=== PATIENT | male | born 1985 | race Caucasian/White ===

== ENCOUNTER 2021-04-29 13:29 | Outpatient (CLI) | payer OTHER, SELFPAY ==
--- NOTE | 2021-04-29 13:38 | MR_ITS ---
WS: [id number] MRI LUMBAR SPINE NONCONTRAST HISTORY: LOW BACK PAIN COMPARISON: 02/02/2018 TECHNIQUE: Sagittal and axial multisequence imaging is submitted. 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 This probably due to iraida ging parameters. No progression of this syrinx. Normal lumbar alignment with no compression fractures or marrow edema. Disc spaces and vertebral body heights are well-preserved. Conus terminates normally at L1. L1-L2: Normal. L2-L3: Normal. L3-L4: Normal. L4-L5: Very mild ligamentum flavum hypertrophy and facet arthritis. There is very mild narrowing of t he LEFT foramen. L5-S1: Mild ligamentum flavum and facet arthritis. No stenosis. MR/MR lumbar spine wo con* [id number] IMPRESSION: 1. Syrinx presented described in the lower thoracic cord is not as well visual ized today. No progression evident. 2. Mild bilateral facet joint arthritis at L4-5 and L5-S1. Very mild narrowing of the LEFT foramen at L4-5.
== END 2021-04-29 13:30 | disposition home or self-care (01) ==
PROVIDERS: PCP Nurse Practitioner; Visit Provider Nurse Practitioner
DX: M47.816 Spondylosis without myelopathy or radiculopathy, lumbar region (principal); M47.817 Spondylosis without myelopathy or radiculopathy, lumbosacral region
CPT/HCPCS: 72148

== ENCOUNTER 2021-08-23 08:21 | Emergency (ER) | payer OTHER, SELFPAY ==
[2021-08-23 08:42] VITALS: BP 139/84; PULSE 91; RESP 14; TEMP 36.7; O2SAT 97; BMI 30.1
--- NOTE | 2021-08-23 08:56 | ED_ITS ---
HPI - Ear Problem General: Chief complaint: Ear Stated complaint: Left ear pain with ringing, cant sleep Time Seen by Provider: 08/23/21 08:32 History of Present Illness: Patient woke up with ear pain in his left ear day and a half ago. Has decreased hearing out of it. Patient did put hydrogen peroxide in the ear without any relief Complaint: ear pain Associated symptoms: Reports ear or mastoid pain and tinnitus; Denies fever(s) or headache(s) Review of Systems Const: Denies: fever(s), chills or body aches Eyes: Denies: eye discomfort ENMT: Reports: ear or mastoid pain, change in hearing and tinnitus; Denies: throat pain or ear discharge Card: Reports: dyspnea on exertion; Denies: chest pain Resp: Denies: dyspnea GI: Reports: nausea and vomiting; Denies: abdominal pain Skin/Breast: Denies: rash Neuro: Denies: headache(s) Psych: Denies: depression or suicidal ideation Physical Exam Const: COMMON NORMALS: no acute distress, patient oriented x3 and alert HENMT: COMMON NORMALS: normocephalic and EAC's normal HEAD & SCALP: normocephalic EXTERNAL AUDITORY CANAL: EAC's normal TYMPANIC MEMBRANE: TM normal on the right and TM abnormal TM laterality: left Details: bulging, dull, effusion, erythematous and loss of landmarks Eye: COMMON NORMALS: EOMs intact bilaterally Neck/C-Spine: COMMON NORMALS: no JVD Resp: COMMON NORMALS: normal respiratory effort and No use of accessory muscles Cardio: COMMON NORMALS: no JVD GI: INSPECTION: Yes normal to inspection Extremity: COMMON NORMALS: normal to inspection and full ROM Neuro: COMMON NORMALS: patient oriented x3 SENSORIUM/ORIENTATION: Yes alert Psych: COMMON NORMALS: mental status grossly normal Skin: COMMON NORMALS: no rashes or lesions noted GENERAL SKIN EXAM: no rashes or lesions noted Course Vital Signs: Vital signs: Vital Signs Temperature 98.1 F 08/23/21 08:42 Pulse Rate 91 08/23/21 08:42 Respiratory Rate 14 08/23/21 08:42 Blood Pressure 139/84 08/23/21 08:42 Pulse Oximetry 97 08/23/21 08:42 MDM - Ear Medical Decision Making Left otitis media. Discharge Plan Discharge Patient Disposition: Home Clinical Impression: Otitis media Condition: Stable Prescriptions: New Bactrim DS 800-160 mg tablet 1 tab PO BID 7 Days Qty: 14 0RF Celebrex 100 mg capsule 200 mg PO BID Qty: 20 0RF Cortisporin-TC 3.3-3-10-0.5 mg/mL drops,suspension 4 drp otic (ear) QID 7 Days Qty: 10 0RF Discharge Orders: Discharge ED (Routine); Ordered 08/23/21 Ordered By: Kristopher Tabares Referrals: Sangeeta Brown FNP [Primary Care Provider] - Discharge Diet: Usual diet Discharge Activity: Resume usual activity Patient Instructions: Otitis Media - Adult Activity Restrictions/Additional Instructions: Follow-up with medical provider as directed. Take medications as prescribed. Return to the ER or your medical provider if condition worsens. Please read and understand discharge instructions. If any questions ask please. Can also take Tylenol 1000 mg 4 times a day for pain along with the Celebrex for pain. Coding Level of Care Code ED Multifocal Lens Inspector for Remigio Kelley
== END 2021-08-23 09:05 | disposition home or self-care (01) ==
LOC: ER 10:40
PROVIDERS: Emergency Provider Nurse Practitioner Family; PCP Nurse Practitioner
DX: H66.92 Otitis media, unspecified, left ear (principal)
CPT/HCPCS: 99281

== ENCOUNTER 2023-10-21 08:23 | Outpatient (CLI) | payer OTHER, SELFPAY ==
--- NOTE | 2023-10-21 08:29 | MR_ITS ---
WS: [id number] MRI RIGHT HAND WITHOUT CONTRAST. COMPARISON: None Multiplanar, multisequence imaging is performed without contrast. History: Pain and burning between the first and second metacarpals. Marker is placed in the area of pain which is between the proximal second and third metacarpals. No s oft tissue abnormality is identified at the area of pain and swelling. There is no mass or mass effec t. No marrow abnormality. Extensor and flexor tendons appear normal and appropriately positioned. No tear is identified. No mass. IMPRESSION: Negative MRI RIGHT hand. No signal abnormalities in the soft tissues or bone.
== END 2023-10-21 08:24 | disposition home or self-care (01) ==
LOC: RAD 08:24
PROVIDERS: PCP Nurse Practitioner; Visit Provider Nurse Practitioner
DX: M79.641 Pain in right hand (principal)
CPT/HCPCS: 73218

== ENCOUNTER 2025-02-11 13:44 | Emergency (ER) | payer OTHER, SELFPAY ==
--- OUTSIDE RECORDS SUMMARY | 2024-04-28 06:00 | XMS_ITS | Encounter Summary ---
Author Name [facility] [place] Organization [facility] [place] Address [address] [place] [address] Care Team Providers Care Wind Field Manager Name Role Phone ELENA GORMAN Primary Care Provider Unavail able Selected Encounter This section includes the information on record at [place] for the Encounter. Date/Time Encounter Type Encounter Description Reason Provider Source Apr 28, 2024 11:00 AM Outpatient Encounter PRIMARY CARE/MEDICINE ICD-10-CM Z00.00 Encntr for general adult medical exam w/o abnormal findings AILYN GORMAN Cl Encounter Template Text not used by [place] Assessments - Encounter Diagnoses This section includes the primary and secondary diagnoses documented for the Encounter. Date/Time Primary/Secondary Diagnosis Diagnosis Name Provider Source Apr 28, 2024 11:06 PM PRIMARY Encntr for general adult medical exam w/o abnormal findings HALIMA GORMAN [facility] Apr 28, 2024 11:06 PM SECONDARY Chronic migraine w/o aura, intractable, w/o stat migr [facility]IMA GORMAN [facility] Apr 28, 2024 11:06 PM SECONDARY Chronic rhinitis HALIMA [facility]MAN[facility] Apr 28, 2024 11:06 PM SECONDARY Depression, unspecified HALIMA GORMAN [facility] Apr 28, 2024 11:06 PM SECONDARY Generalized anxiety disorder HALIMA GORMAN [facility] Apr 28, 2024 11:06 PM SECONDARY Hyperlipidemia, unspecified [facility]IMA GORMAN [facility] Apr 28, 2024 11:06 PM SECONDARY Insomnia, unspecified [facility] Apr 28, 2024 11:06 PM SECONDARY Low back pain, unspecified HALIMA GORMAN [facility]DEE [facility] Lab Results: +/- 30 days of the encounter This section includes the Chemistry and Hematology Lab Results on record with VA for the patient. Radiology Reports and Pathology Reports are provided separately, in subsequent sections. Lab Results This section contains the Chemistry/Hematology Results that were resulted 30 days before or 30 daysafter the date of the Encounter. Date/Time Source Result Type Result - Unit Interpretation Reference Range Specimen Type Comment Apr 28, 2024 11:15 AM [place] [facility] HGA1C BLOOD Specimen Type: BLOOD No comment entered. Ordering Provider: ELENA GORMAN Report Released Date/Time: Apr 27, 2024 04:16 PM Reporting Lab: [place] [facility] [address] [place] [address] Performing Lab: [place] [facility] [address] [place] [address] HGA1C 5.7 4.0-6.0 Apr 28, 2024 11:15 AM [place] [facility] CHOLESTEROL PANEL (PB) PLASMA Specimen Type: P LASMA No comment entered. Ordering Provider: ELENA GORMAN Report Released Date/Time: Apr 27, 2024 04:16 PM Reporting Lab: [place] [facility] [address] [place] [address] Performing Lab: [place] [facility] [address] [place] [address] CHOLESTEROL 226 mg/dL H 0-200 TRIGLYCERIDE 141 mg/dL 0-150 CALCULATED LDL 147.0 mg/dL HDL(New) 50.8 mg/dL H >40 HDL % OF TOTAL CHOLESTEROL (PB) 22.5 >25 Apr 28, 2024 11:15 AM [place] [facility] TSH (MA-PB) SERUM Specimen Type: SERUM No comment entered. Ordering Provider: ELENA GORMAN Report Released Date/Time: Apr 27, 2024 04:16 PM Reporting Lab: [place] [facility] [address] [place] [address] Performing Lab: [place] [facility] [address] [place] [address] TSH 2.212 u[IU]/mL 0.47-5 Apr 28, 2024 11:15 AM [facility] CBC BLOO D Specimen Type: BLOOD No comment entered. Ordering Provider: ELENA GORMAN Report Released Date/Time: Apr 27, 2024 04:16 PM Reporting Lab[facility] [address] [place] [id number] Performing Lab: [facility] [address] [id number] WBC 7.1 10*3/uL 3.6-11.2 RBC 5.21 10*6/uL 4.10-5.70 HGB 16.4 g/dL 13.1-16.8 HCT 47.6 38.2-48.4 MCV 91.4 fL 80.0-100.0 MCH 31.5 pg 27.0-34.0 MCHC 34.5 g/dL 33.0-36.0 PLT 294 10*3/uL 150-400 MPV 9.7 fL 7.5-11.2 RDW 13.2 11.8-15.1 LYMPHOCYTES, AUTO % 29.4 MONOCYTES, AUTO % 7.0 NEUTROPHILS, AUTO % 62.0 EOSINOPHILS, AUTO % 0.9 BASOPHILS, AUTO % 0.4 LYMPHOCYTES, ABSOLUTE 2.07 10*3/uL 0.77- 4.50 MONOCYTES, ABSOLUTE 0.49 10*3/uL 0.19-0. 8 NEUTROPHILS, ABSOLUTE 4.38 10*3/uL 2.10- 8.00 EOSINOPHILS, ABSOLUTE 0.06 10*3/uL 0.00- 0.60 BASOPHILS, ABSOLUTE 0.03 10*3/uL 0.00-0. 20 IMMATURE GRANS, AUTO % 0.3 IMMATURE GRANS, AUTO ABS 0.02 10*3/uL 0. 00-0.05 Apr 28, 2024 11:15 AM [facility] COMPREHENSIVE METABOLIC PANEL PLASMA Specimen Type: PLASMA No comment entered. Ordering Provider: ELENA GORMAN Report Released Date/Time: Apr 27, 2024 04:16 PM Reporting Lab: [facility] [address] [place] [address] Performing Lab: [place] [facility] [address] [place] [address] CREATININE 1.10 mg/dL 0.7-1.3 UREA NITROGEN 9 mg/dL 9-25 GLUCOSE 103 mg/dL H 72-99 SODIUM 137 meq/L 136-145 POTASSIUM 4.1 meq/L 3.5-5 CHLORIDE 104 meq/L 98-107 CARBON DIOXIDE 22 meq/L 22-31 CALCIUM 9.6 mg/dL 8.4-10.4 PROTEIN 8.1 g/dL 6-8.6 ALBUMIN 4.8 g/dL 3.4-5 TOTAL BILIRUBIN 0.5 mg/dL 0.2-1.2 ALKALINE PHOSPHATASE 115 U/L 40-150 AST/SGOT 26 U/L 5-34 ALT/SGPT 38 U/L 8-40 EGFR (CKD-EPI 2020) 89 Apr 28, 2024 11:15 AM [facility] VIT[facility]IN D, 25-HYDROXY SERUM Specimen Type: SE RUM No comment entered. Ordering Provider: ELENA GORMAN Report Released Date/Time: Apr 27, 2024 04:16 PM Reporting Lab: [place] [facility] [address] [place] [address] Performing Lab: [place] [facility] [address] [place] [id number] VITAMIN D, 25-HYDROXY 45.3 ng/mL 30-96 Apr 28, 2024 11:15 AM [facility] URINALYSIS (STL-PB) URINE Specimen Type: URIN E No comment entered. Ordering Provider: ELENA GORMAN Report Released Date/Time: Apr 27, 2024 04:16 PM Reporting Lab: [place] [facility] [address] [place] [address] Performing Lab: [place] [facility] [address] [place] [address] URINE COLOR [place] Yellow U.BILIRUBIN NEGATIVE mg/dL Negative U.PH 5.5 5.0-8.0 URINE WBC/HPF 1 /[HPF] 0-5 URINE RBC/HPF 4 /[HPF] 0-5 APPEARANCE TURBID H Clear U.NITRITE NEGATIVE mg/dL Negative MUCUS MANY /[LPF] H Negative-Rare AMORPHOUS CRYSTALS RARE /[HPF] Negative- Rare URN.GLUCOSE NORMAL mg/dL Negative URN.PROTEIN NEGATIVE mg/dL URN.UROBILINOGEN NORMAL mg/dL Normal URN.BLOOD NEGATIVE mg/dL Negative-Trace URN.KETONES NEGATIVE mg/dL Negative-Trac e URN.LEUK.EST. NEGATIVE Negative-Trace URN.SPECIFIC GRAVITY 1.024 1.005-1.029 Vital Signs: All taken on the encounter date This section contains inpatient and outpatient Vital Signs collected on the date of the Encounter. Date/Time Temperature Pulse Blood Pressure Respiratory Rate SP02 Pain Height Weight Body Mass Index Source Apr 28, 2024 11:02 AM 85 123/88 18 96 0 69 215.4 32 [facility] [place] [facility] Social History: Smoking Status (Most current) and Tobacco Use (All prior to encounter date) This section includes the most current, and the historical, smoking and tobacco- related health factors from the NE facility where the Encounter took place. Current Smoking Status This section includes the most current smoking, or tobacco-related health factor, from the NE facility where the Encounter took place. Date/Time Current Smoking Status Comment Sarwat ity Apr 28, 2024 11:00 AM VA-TOBACCO NEVER USED [facility] Tobacco Use History This section includes a history of the smoking, or tobacco-related health factors, that were collected on or before the date of the Encounter. The data comes from the NE facility where the Encounter took place. Date/Time Smoking Status/Tobacco Use Comment F acility Apr 29, 2023 01:30 PM VA-TOBACCO NEVER USED [facility] Apr 30, 2022 01:00 PM VA-TOBACCO NEVER USED [facility] Apr 15, 2021 02:30 PM VA-TOBACCO NEVER USED [facility] May 09, 2020 02:00 PM VA-TOBACCO NEVER USED [facility] Dec 27, 2018 11:35 AM VA-TOBACCO NEVER USED [facility] Apr 08, 2011 01:08 PM LIFETIME NON-USER OF TOBACCO [facility] Advance Directives: All historical and current Section Date Range: From patient's date of to the date document was created. This section includes ALL of a patient's completed or amended VA Advance and Rescinded Directives. The entries below indicate that a directive exists for the patient, but an actual copy is not included with this document. The data comes from all [place] facilities. Date Advance Directives Provider Source May 22, 2011 ADVANCE DIRECTIVE DISCUSSION [facility] Apr 09, 2011 ADVANCE DIRECTIVE DISCUSSION DENNY [facility] December 12, 2010 ADVANCE DIRECTIVE SEDA DEANVIDALKings[facility] Radiology Reports: +/- 30 days of the encounter Radiology Reports For cases when an order for radiology services may have been completed prior to the date of the Encounter, the report list includes the Radiology Reports that were completed up to 30 days before dateof the Encounter. For cases when an order for radiology services may have been completed after the date of the Encounter, the report list also includes the Radiology Reports that were completed up to30 days after date of the Encounter. The data comes from all NE treatment facilities. Date/Time Radiology Report Provider Source Apr 28, 2024 11:17 AM CHEST X-RAY, 2 VIE WS: FABIAN ZEPEDA [id number] -[id number] Ex Date: APR 28, 2024@11:17 Req Phys: ELENA GORMAN Loc: PB-[facility] (Req Img Loc: PB-XRAY [place] Service: [place] [address] (Case [id number] COMPLETE) CHEST X-RAY, 2 VIEWS (RAD Detailed) CPT:61201 Reason for Study: Screening Clinical History: Screening Report Status: Verified Date Reported: APR 28, 2024 Date Verified: APR 28, 2024 Range Technician E-Sig: Report: Chest 2 views. There are no infiltrates or effusions. Heart normal size. Findings similar previous studies. Impression: No acute cardiopulmonary change since previous studies dating back to 05/05/2022 Primary Interpreting Staff: JEN WOO, RADIOLOGIST (Range Technician, no e-sig) /JEN Pritchard [facility] Encounter Notes: All associated encounter notes This section contains the clinical notes associated to the Encounter. Date/Time Encounter Note(s) Provider Source Apr 28, 2024 11:23 AM PRIMARY CARE PROGR ESS NOTE: LOCAL TITLE: PRIMARY CARE CLINIC PROGRESS NOTE PB STANDARD TITLE: PRIMARY CARE PROGRESS NOTE DATE OF NOTE: APR 28, 2024@11:23 ENTRY DATE: APR 28, 2024@11:23:08 AUTHOR: ELENA GORMAN COSIGNER: URGENCY: STATUS: COMPLETED PROVIDER ASSESSMENT DATE & TIME:Apr@11:23 CHIEF COMPLAINT: Annual physical and labs. HISTORY OF PRESENT ILLNESS: is being seen for his annual physical and labs. remains hypervigilant and on edge in the office. He denies any home needs. He states he continues to stay [place] certain [place] and prefers to be there. He is due for labs today and screening chest xray. He denies any health concerns. He continues to have insomnia. 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: 1) HLD - Hyperlipidemia (SNOMED CT [id number]) 2) Somnambulism 3) Posttraumatic stress disorder 4) Chronic post-traumatic headache 5) Back pain 6) Thyroid nodule 7) Right hip pain 8) Hearing Loss (SCT 46936804) 9) Insomnia (SCT 747796154) 10) Chronic sinusitis 11) Chronic rhinitis 12) Tinnitus 13) Low back pain 14) Sciatica 15) Depression 16) Anxiety 17) Cervicalgia 18) Night terrors 19) Exposure to potentially hazardous substance Active Outpatient Medications (including Supplies): Active Outpatient Medications Status 1) ATORVASTATIN CALCIUM 10MG TAB TAKE ONE-HALF TABLET BY ACTIVE MOUTH EVERY EVENING FOR HIGH CHOLESTEROL 2) CHOLECALCIF 25MCG (D3-1,000UNIT) TAB TAKE ONE TABLET ACTIVE BY MOUTH ONCE A DAY FOR VITAMIN D DEFICIENCY 3) PRAZOSIN HCL 1MG CAP TAKE ONE CAPSULE BY MOUTH AT ACTIVE BEDTIME FOR NIGHTMARES MAY CAUSE DIZZINESS OR DROWSINESS. REVIEW OF SYSTEMS: HEENT: No Headache. No blurry vision, vision loss, eye pain, red eyes, or foreign body. No runnynose, congestion, or nose bleed. No hearing loss, ringing in the ears, or vertigo. No sore throat or dental pain. RESPIRATORY: No cough, SOA, wheezing, or sputum production. CARDIOVASCULAR: No chest pain, palpitations, tachycardia, PND, or orthopnea. GI: No abdominal pain, nausea, vomiting, diarrhea, constipation, melena, or hematochezia. : No dysuria, hematuria, urinary frequency, weak stream, or post-void dribbling. MUSCULOSKELETAL:chronic joint pain. SKIN: No rash, lesions, or infection PSYCH: No Depression. positive anxiety. Not suicidal. PHYSICAL ASSESSMENT: VITAL SIGNS Pulse: 85 (04/28/2024 11:02) Blood Pressure: 123/88 (04/28/2024 11:02) Respiratory Rate: 18 (04/28/2024 11:02) Temperature: 96.8 F [36.0 C] (09/27/2023 11:40) Weight: 215.4 lb [97.70 kg] (04/28/2024 11:02) Height: 69 in [175.3 cm] (04/28/2024 11:02) Pain: 0 (04/28/2024 11:02) HEENT:PERRL, EOMI, Fundi benign, TM's clear, Pharynx not red and without exudate, tonsils normal size. NECK: Supple, no lymhadenopathy, thyroid normal. CARDIAC: Regular rate and rhythm without murmur. No edema. RESPIRATORY: CTA, BEBS GI: Abdomen soft,with ABS, no HSM, no guarding or rebound. MUSCULOSKELETAL:Chronic joint pain with no acute change. FROM. SKIN: [place] without rash or lesions. NEUROLOGICAL: The [place] is alert and oriented without distress. Affect appropriate. IMPRESSION: Encounter for General Adult Medical Exam Hyperlipidemia-stable PTSD-chronic Anxiety-chronic Insomnia-chronic Low Back Pain-chronic PLAN: Increase water intake. Continue current medications. Labs today. Chest Xray today. RTC in one year or sooner if needed. Patient is advised this primary care clinic has open access and he can make a same day appointment anytime a problem/concern arises. Patient further advised he can be seen on a walk-in basis as needed. Patient is provided clinic contact information. Medications reviewed and reconciled. Discussed diet and exercise as relevant to patient conditions. Treatment plan as noted above and the After Visit Summary was reviewed with [place]; opportunity provided to report concerns and ask question regarding aspects of care or treatment or services; concurrence reached and verbalized understanding. Please refer to addendum or follow up lab letter for plan of care/changes related to lab/test results not available at conclusion of appointment, if any. Discussed with patient that in the event of community imaging / testing being ordered in the future, once the imaging / testing has been completed, please notify PACT of within 1 week by a VA PACT member; this is due to intermittent lapses in notification of imaging completion within CPRS. All questions answered; agrees to plan of care. Follow up as listed above, annually, and as needed. Keep all completion at outside facility if not called with results appointments. Medications Reconciled. Time spent 30 minutes. Follow-up Pos Alcohol : Patient's AUDIT-C score was greater than or equal to 5; brief alcohol intervention is indicated. Shared concern that the patient may be drinking at unhealthy levels known to increase his/her risk of alcohol related health problems. Specifically the following were reviewed: Liver disease, medication interactions, depression, anxiety, insomnia, bleeding from the stomach, dementia The patient was advised/informed to drink within safe limits, which are no more than 2 drinks per day on average and no more than 4 drinks on any one day AND no more than 14 drinks per week. Will discuss again at next visit. /gilson/ [facility] Signed: 04/28/2024 23:04 ELENA GORMAN Apr 28, 2024 11:03 AM PRIMARY CARE NURSI MARLEEN NOTE: LOCAL TITLE: PRIMARY CARE NURSING PROGRESS NOTE (TEXT) NURSING P STANDARD TITLE: PRIMARY CARE NURSING NOTE DATE OF NOTE: APR 28, 2024@11:03 ENTRY DATE: APR 28, 2024@11:03:26 AUTHOR: HILARY ZHONG EXP COSIGNER: URGENCY: STATUS: COMPLETED Established Patient FABIAN ZEPEDA IS A 38 YEAR OLD MALE BEING SEEN IN CLINIC APR 28, 2024. == == REASON FOR VISIT: [place] here today for his Annual Appt. Are you receiving care any where other than the VA? No HEALTH AND SURGICAL HISTORY: Does patient report using home oxygen? No CURRENT ACTIVE MEDICATIONS FOR REVIEW: Allergies/ADRs (Tool #5) FACILITY ALLERGY/ADR -------- No Remote Allergy/ADR Data available for this patient [facility] Med. Reconciliation (Tool #1) INCLUDED IN THIS LIST: Alphabetical list of active outpatient prescriptions dispensed from this NE (local) and dispensed from another VA or DoD facility (remote) as well as inpatient orders (local pending and active), local clinic medications, locally documented non-VA medications, and local prescriptions that have or been discontinued in the past 90 days. Non-VA Meds Last Documented On: Data not found NOTE The display of VA prescriptions dispensed from another VA or DoD facility (remote) is limited to active outpatient prescription entries matched to National Drug File at the originating site and may not include some items such as investigational drugs, compounds, etc. NOT INCLUDED IN THIS LIST: Medications self-entered by the patient into personal health records (i.e. [employer]) are NOT included in this list. Non-VA medications documented outside this NE, remote inpatient orders (regardless of status) and remote clinic medications are NOT included in this list. The patient and provider must always discuss medications the patient is taking, regardless of where the medication was dispensed or obtained. OUTPT ATORVASTATIN CALCIUM 10MG TAB (Status = Active) TAKE ONE-HALF TABLET BY MOUTH EVERY EVENING FOR HIGH CHOLESTEROL Rx# [id number] Last Released: 03/20/24 Qty/Days Supply: 45 Rx Expiration Date: 03/14/25 Refills Remainin Indication: FOR HIGH CHOLESTEROL OUTPT CHOLECALCIF 25MCG (D3-1,000UNIT) TAB (Status = Active) TAKE ONE TABLET BY MOUTH ONCE A DAY FOR VITAMIN D DEFICIENCY Rx# [id number] Last Released: 03/20/24 Qty/Days Supply: 100/90 Rx Expiration Date: 03/14/25 Refills Remainin Indication: FOR VITAMIN D DEFICIENCY OUTPT PRAZOSIN HCL 1MG CAP (Status = Active) TAKE ONE CAPSULE BY MOUTH AT BEDTIME FOR NIGHTMARES MAY CAUSE DIZZINESS OR DROWSINESS. Rx# [id number] Last Released: 05/05/23 Qty/Days Supply: 90 Rx Expiration Date: 04/29/24 Refills Remainin Indication: FOR NIGHTMARES SUPPLIES PHARMACY TERMS AND POSSIBLE PATIENT ACTIONS INPT = NE inpatient order IV = NE intravenous medication OUTPT = NE outpatient prescription PHARMACY POSSIBLE PATIENT TERMS EXPLANATION ACTIONS -------- ----- ACTIVE A prescription that can be If you have refills, filled at the local NE pharmacy. you may request a refill of this prescription from your NE pharmacy. CLINIC A medication you received during If you have questions a visit to a VA clinic or about this medication emergency department. contact your VA healthcare team. DISCONTINUED A prescription your provider has Contact your VA stopped. It is no longer healthcare team if you available to be sent to you or need more of this picked up at the NE pharmacy medication. window. A prescription which is too old Contact your VA to fill. This does not refer to healthcare team if you the expiration date of the need more of this medication in the container. medication. NON-VA A medication that came from If this medication someplace other than a VA information is pharmacy. This may be a incorrect or out of prescription from either the VA date, please tell your or non VA providers that was VA healthcare team. filled outside the VA. Or, it may be an tmhd-dic-qserlmq (OTC), herbal, dietary supplements or sample medication. ON HOLD An active prescription that will Contact your VA not be filled until pharmacy pharmacy when you need resolves the issue. more of this medication. PARKED An active prescription that will Contact your VA not be filled until the patient pharmacy when you need requests it. this medication. PENDING This prescription order has been If you have been sent to the pharmacy for review instructed to start and is not ready yet. this medication now, contact your VA pharmacy. SUSPENDED An active prescription that is Contact your NE not scheduled to be filled yet. pharmacy if you need You should receive it before this medication now. you run out. Patient reports taking medications as ordered. IS PATIENT TAKING ANY OVER THE COUNTER MEDICATIONS, SUCH VITAMINS OR HERBAL SUPPLEMENTS, INCLUDING ANY MEDICATIONS PRESCRIBED BY ANOTHER PHYSICIAN? No ALLERGIES/ADVERSE REACTIONS: [place]NAL [place] Does patient have any new allergies to report since last visit? NO VITALS: TEMPERATURE: 96.8 F [36.0 C] (09/27/2023 11:40) BP: 123/88 (04/28/2024 11:02) RESP: 18 (04/28/2024 11:02) PULSE: 85 (04/28/2024 11:02) HT: 69 in [175.3 cm] (04/28/2024 11:02) WT: 215.4 lb [97.70 kg] (04/28/2024 11:02) BMI: 31.9 PAIN ASSESSMENT: (Most Recent Pain Score in Vitals Package: 0 (04/28/2024 11:02) ) The patient indicated that they and their close contacts have not traveled outside of the [place] in the past 21 days. The patient reports the following symptoms: No symptoms present The patient is not immunocompromised. The patient does not report having a history of Multi Drug Resistant Organism (MDRO) within the last five years. The patient does not report having been exposed to measles, chickenpox, or zoster in last 30 days. Patient reports no pain at this visit. Pain Score = 0. STRESS: Thank you for your service. Now let us serve you. At the [facility], we strive to provide you with exceptional health care that improves your health and well-being. Are you feeling sad, empty, or depressed? No Do you need to talk about things in your life that worry you or cause you stress? No Do you need to talk about personal problems, family problems, alcohol use, drug use, or mental or emotional illness? No SUICIDE SCREENING: The patient was asked, Over the past two weeks, how often have you been bothered by thoughts that you would be better off or of hurting yourself in some way? Not At All SPIRITUAL ASSESSMENT: Are there mormon practices or spiritual concerns you want the aviation safety officer, your physician, and other health care team members to immediately know about? No Patient advised to call the clinic for any concerns, questions, or symptoms. Patient and/or caregiver verbalized understanding of plan of care. Sexual Orientation: The patient thinks of their sexual orientation as: Straight or Heterosexual RHS Screen: RHS Screen Session Format: Face to Face Environmental Check Screening was not completed at this time due to: Other: Refused COVID-19 Immunization: Refused Moderna Monovalent COVID-19 vaccine Immunization: COVID-19 (MODERNA), MRNA, LNP-S, PF, 50 MCG/0.5 ML (AGES 12+ YEARS) Refusal Reason: PATIENT DECISION Patient refuses all immunization(s) in the COVID-19 group Date Documented: 04/28/24 11:07 Alcohol Use Screen (AUDIT-C): Alcohol Screen: SCREEN FOR ALCOHOL (AUDIT-C) An alcohol screening test (AUDIT-C) was positive (score=7). 1. How often did you have a drink containing alcohol in the past year? Consider a drink to be a 12 ounce can or bottle of regular beer, 8 ounces of malt liquor, a 5 ounce glass of table wine, or a 1.5 ounce shot of liquor (like scotch, gin, or vodka). Two to four times a month 2. How many drinks containing alcohol did you have on a typical day when you were drinking in the past year? Five or six drinks 3. How often did you have six or more drinks on one occasion in the past year? Weekly Licensed Independent Provider notified of positive screen and need for follow-up. Name of provider notified: [place] Depression Screening: Perform PHQ-2 A PHQ-2 screen was performed. The score was 0 which is a negative screen for depression. Over the past two weeks, how often have you been bothered by the following problems? 1. Little interest or pleasure in doing things Not at all 2. Feeling down, depressed, or hopeless Not at all Tobacco Use Screening: The patient has never used tobacco. Influenza Immunization: Deferral / Refusal The patient declines to receive the recommended dose of seasonal influenza vaccine. Immunization: INFLUENZA, UNSPECIFIED FORMULATION Refusal Reason: PATIENT DECISION Patient refuses all immunization(s) in the FLU group Date Documented: 04/28/24 11:08 Advanced Directive Screen/Continuous Improvement Facilitator: ADVANCE DIRECTIVE SCREENING: I asked if the patient has an advance directive, and determined that: Patient has an Advance Directive. Patient does not wish to make any changes to the Advance Directive at this time. ADVANCE DIRECTIVE NOTIFICATION I provided the patient with written notification about advance directives. Level of understanding: MOVE Weight Management: Most recent BMI: 31.9. educated on health risk of obesity and treatment is offered. Participation in a weight management program was considered/offered for this patient based on the current BMI score. Patient declines participation in a weight management program. Pain Assessment: - PAIN ASSESSMENT: .. Patient reports no pain at this visit. Pain Score = 0. Patient's self identified pain goal: 0 [facility] DIGITAL DIVIDE CAPABILITY REMINDER: Patient is not interested in [facility] at this time. 'S RIGHT TO DECLINE STATEMENT [place] understands they have the right to decline the use of [employer] at any time without adverse affects on their continued access to healthcare. [facility] PHP MAP: PERSONAL HEALTH PLAN INVENTORY & MAP [place]'s Response: family Depression Screening: Perform PHQ-2 A PHQ-2 screen was performed. The score was 2 which is a negative screen for depression. Over the past two weeks, how often have you been bothered by the following problems? 1. Little interest or pleasure in doing things Several days 2. Feeling down, depressed, or hopeless Several days /gilson/ HILARY ZHONG LPN Signed: 04/28/2024 11:09 HILARY ZHONG [facility]
[2025-02-11] VITALS (7 sets, daily range): BP systolic 131–140; BP diastolic 83–103; PULSE 96–109; RESP 16; TEMP 36.7; O2SAT 95–99; BMI 30.1
--- OUTSIDE RECORDS SUMMARY | 2025-02-11 13:54 | XMS_ITS | Continuity of Care Document ---
Author Name [facility] Organization [facility] Care Team Providers Care Panel Cutter Name Role Phone [facility] Unavailable Unavailable Problems Combined list of problems from Department of Defense and Veterans Affairs facilities. It does not include entries that were removed or entered in error. Problem Status Onset Date Problem Type Date of Resolution Comments Source visit for: services physical Active Condition DoD visit for: ears / hearing exam Active Condition DoD Anxiety Active Condition [facility] Back pain Active Condition [facility] Cervicalgia Active Condition [facility] Chronic post-traumatic headache Active Condition [facility] Chronic rhinitis Active Condition [facility] Chronic sinusitis Active Condition [facility] Depression Active Condition [facility] Exposure to potentially hazardous substance Active Condition [facility] Hearing Loss (SCT 15268154) Active Condition [facility] HLD - Hyperlipidemia (SNOMED CT 76196011) Active Condition [place] [facility] Insomnia (SCT 615541930) Active Condition [facility] Low back pain Active Condition [facility] Night terrors Active Condition [facility]traumatic stress disorder Active Condition [place] [facility] Right hip [facility] Active [facility] Sciatica Active Condition [facility] Somnambulism Active Condition [place] [facility] Thy[facility] nodule Active Condition [place] [facility] Tinnitus Active Condition [facility] Abdominal Pain, Epigastric (ICD-9-CM 789.06) Inactive Condition 04/14/2016 [place] [facility] Acute sinusitis (SNOMED CT 47662810) Inactive Condition 04/14/2016 [facility] Ankle and/or foot joint stiffness (SNOMED CT 908242317) Inactive Condition 04/14/2016 [facility] Anxiety * (ICD-9-CM 300.00/300.09) Inactive Condition 03/04/2017 [facility] Bursitis * (ICD-9-CM 727.3) Inactive Condition 04/14/2016 [facility] Concussion (ICD-9-CM 850.9) Inactive Condition 04/14/2016 [facility] Crushing injury of finger (SNOMED CT 32032908) Inactive Condition 03/04/2017 [facility] Dermatitis or Eczema * (ICD-9-CM 692.9) Inactive Condition 04/14/2016 [facility] Disorder of tendon of shoulder region (SNOMED CT 19901467) Inactive Condition 04/14/2016 [facility] Dream anxiety disorder Inactive Condition 04/14/2016 [facility] Encounters for other Specified Administrative Purpose (ICD-9-CM V68.89) Inactive Condition 04/14/2016 [place] [facility] Feeling angry (SNOMED CT 19024904) Inactive Condition 04/14/2016 [facility] GERD * (ICD-9-CM 530.81) Inactive Condition 03/04/2017 [place] [facility] Headaches * (ICD-9-CM 784.0) Inactive Condition 04/14/2016 [facility] Hyperlipidemia Inactive Condition 04/14/2016 [facility] Laboratory Examination Ordered as part of a Routine General Medical Examination Inactive Condition 04/14/2016 [place] [facility] Lumbar strain Inactive Condition 04/14/2016 [facility] Open fracture of one or more phalanges of hand (SNOMED CT 444086403) Inactive Condition 03/04/2017 [facility] 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 [place] [facility] Other General Medical Examination for Administrative Purposes Inactive Condition 04/14/2016 [place] [facility] Pain in joint involving upper arm (ICD-9-CM 719.42) Inactive Condition 04/14/2016 [place] [facility] Routine General Medical Examination at a Health Care Facility * (ICD-9-CM V70.0) Inactive Condition 04/14/2016 [place] [facility] Skin lesion Inactive Condition 04/14/2016 [facility] Sleeplessness (SNOMED CT 204484359) Inactive Condition 04/15/2021 [place] [facility] VACCIN FOR INFLUENZA Inactive Condition 04/14/2016 [facility] VACCINATION FOR TD-DT - Tetanus-diphtheria [td] [dt] (ICD-9-CM V06.5) Inactive Condition 05/09/2020 [facility] Diagnosis: ICD-10-CM Z00.00 Encntr for general adult medical exam w/o abnormal findings Active Diagnosis [facility] Diagnosis: ICD-10-CM M25.522 Pain in left elbow Active Diagnosis [facility] Diagnosis: ICD-10-CM M79.641 Pain in right hand Active Diagnosis [place] [facility] Medications Combined list of outpatient medications from Department of Defense and Veterans Affairs facilities.Medications provided include 1) outpatient medications from the last 15 months, and 2) patient-reported medications. Medication Details Route Status Patient Instructions Prescription Expires Prescription Number Last Dispense Date Ordering Provider Order Date Order Qty Source ATORVASTATI N CA 10MG TAB TAKE ONE-HALF TABLET BY MOUTH EVERY EVENING FOR HIGH CHOLESTE ROL ORAL ACTIVE 03/14/2025 [id number] 5 Clarisa GORMAN R 2023 45 [facility] CHOLECALCIF ROBBIN 25MCG (1,000UNIT) TAB TAKE ONE TABLET BY MOUTH ONCE A DAY FOR VITAMIN D DEFICIEN CY ORAL ACTIVE 03/14/2025 [id number] 5 Clarisa GORMAN R 2023 100 [facility] DICYCLOMINE HCL 10MG CAP TAKE 1 CAPSULE BY MOUTH [facility] ESOMEPRAZOL E MAGNESIUM 40MG CAP,EC TAKE 1 CAPSULE BY MOUTH BEFORE BREAKFAS T [facility]AL [facility] HYDROXYZINE PAMOATE 25MG CAP TAKE 1 CAPSULE BY MOUTH Q4-6H [facility] [address] [facility] TRAZODONE HCL 50MG TAB TAKE ONE-HALF TABLET BY MOUTH AT BEDTIME [facility] [address] [facility] Allergies, Adverse Reactions, Alerts Combined list of allergies from Department of Defense and Veterans Affairs facilities. It does not include entries that were removed or entered in error. Substance Category Reaction Severity Reaction type Status Date Reported Comments Source AMBIEN Propensity to adverse reactions to drug (finding) Delirium active 1 [facility] [place] Propensity to adverse reactions to drug (finding) active 1 [facility] No Known Allergies Drug allergy (disorder) active 8 [facility] Immunizations Combined list of available immunizations from the Department of Defense and Veterans Affairs facilities. Immunization Series Date Given Administered By Site Reaction Lot Number CVX Code Drug Linux Admin Status Comments Source INFLUENZA, INJECTABLE, QUADRIVALENT, PRESERVATIVE FREE 2017 150 complet ed [facility] INFLUENZA, SEASONAL, INJECTABLE, PRESERVATIVE FREE 2015 140 complet ed [facility] TETANUS-DIPHT -aPERT (HISTORICAL) 2015 115 complet [facility] N INFLUENZA, SEASONAL, INJECTABLE, PRESERVATIVE FREE 2014 140 complet ed [place] [facility] INFLUENZA, UNSPECIFIED FORMULATION 2013 88 complet ed [facility] TDAP 2012 115 complet ed Left Deltoid [facility] INFLUENZA, UNSPECIFIED FORMULATION 2011 88 complet ed [facility] INFLUENZA, SEASONAL, INJECTABLE, PRESERVATIVE FREE 2010 140 complet ed [facility] influenza virus vaccine, live, attenuated, for intranasal use 0 2009 [id number] [employer] (MED) complet influenza virus vaccine, live, attenuate d, for intranasa l use DoD influenza virus vaccine, split virus (incl. purified surface antigen)-reti red CODE 0 2009 UNK 15 Unknown (UNK) comple t ed influenza virus vaccine, split virus (incl. purified surface antigen)- retired CODE DoD typhoid Vi capsular polysaccharid e vaccine 2 2009 UNK 101 [employer] (WAL) complet ed typhoid Vi capsular polysacch aride vaccine DoD hepatitis A and hepatitis B vaccine 3 2009 UNK 104 [employer] (SKB) complet ed hepatitis A and hepatitis B vaccine DoD Novel influenza-H1N 1-09, injectable 0 2009 UNK 127 (AG) complet ed Novel influenza -D7Q0-12, injectabl e DoD anthrax vaccine 3 2008 [id number] [facility] ([facility] complet ed anthrax vaccine DoD tetanus and diphtheria toxoids, adsorbed, preservative free, for adult use (2 Lf of tetanus toxoid and 2 Lf of diphtheria toxoid) 0 2007 UNK 09 Sanofi Pasteur (PMC) complet ed tetanus and diphtheri a toxoids, adsorbed, preservat param free, for adult use (2 Lf of tetanus toxoid and 2 Lf of diphtheri a toxoid) DoD poliovirus vaccine, inactivated 0 2007 UNK 10 [employer] (MED) complet ed polioviru s vaccine, inactivat ed DoD yellow fever vaccine 0 2007 UNK 37 [facility] ([facility]) complet ed yellow fever vaccine DoD typhoid Vi capsular polysaccharid e vaccine 2 2007 UNK 101 [employer] (WAL) complet ed typhoid Vi capsular polysacch aride vaccine DoD hepatitis A and hepatitis B vaccine 2 2007 UNK 104 [employer] (SKB) complet ed hepatitis A and hepatitis B vaccine DoD measles, mumps and rubella virus vaccine 0 2006 [id number] Merck (MSD) complet ed measles, mumps and rubella virus vaccine DoD meningococcal polysaccharid e vaccine (MPSV4) 0 2006 [id number] [employer] (AVB) complet ed meningoco ccal polysacch aride vaccine (MPSV4) DoD pneumococcal polysaccharid e vaccine, 23 valent 0 2006 [id number] 33 [employer] (AVB) complet ed pneumococ jonah polysacch aride vaccine, 23 valent DoD hepatitis A and hepatitis B vaccine 1 2006 [id number] 104 [employer] (SKB) complet ed hepatitis A and hepatitis B vaccine DoD Results Combined list of recent chemistry, hematology and other laboratory results from Department of Defense and Veterans Affairs, ranging from 15 months to all on record, depending upon the facility. Order Name Results Value Reference Range Date Interpretation Specimen Comments Source HGA1C HEMOGLOBIN A1C/HEMOGLO BIN.TOTAL IN BLOOD 5.7 4.0 - 6.0 04/28 Specimen Type: BLOOD No comment entered. Ordering Provider: MYRTLE GORMAN Report Released Date/Time: Apr 27, 2024 04:16 PM Reporting Lab: [place] [facility] [address] [place] [address] Performing Lab: [place] [facility] [address] [place] [address] [place] [facility] TSH (MA-PB) THYROTROPIN [UNITS/VOLU ME] IN SERUM OR PLASMA 2.212 u[IU]/mL 0.47 - 5 04/28 Specimen Type: SERUM No comment entered. Ordering Provider: MYRTLE GORMAN R Report Released Date/Time: Apr 27, 2024 04:16 PM Reporting Lab: [place] [facility] [address] [place] [address] Performing Lab: [place] [facility] [address] [place] [address] [place] [facility] CHOLESTER OL PANEL (PB) CHOLESTEROL [MASS/VOLUM E] IN SERUM OR PLASMA 226 mg/dL 0 - 200 04/28 H Specimen Type: PLASMA No comment entered. Ordering Provider: MYRTLE GORMAN R Report Released Date/Time: Apr 27, 2024 04:16 PM Reporting Lab: [place] [facility] [address] [place] [address] Performing Lab: [place] [facility] [address] [place] [address] [place] [facility] CHOLESTER OL PANEL (PB) TRIGLYCERID E [MASS/VOLUM E] IN SERUM OR PLASMA 141 mg/dL 0 - 150 04/28 Specimen Type: PLASMA No comment entered. Ordering Provider: MYRTLE GORMAN Report Released Date/Time: Apr 27, 2024 04:16 PM Reporting Lab: [place] [facility] [address] [place] [address] Performing Lab: [place] [facility] [address] [place] [address] [place] [facility] CHOLESTER OL PANEL (PB) CHOLESTEROL IN LDL [MASS/VOLUM E] IN SERUM OR PLASMA BY CALCULATION 147.0 mg/dL 04/28 Specimen Type: PLASMA No comment entered. Ordering Provider: MYRTLE GORMAN Report Released Date/Time: Apr 27, 2024 04:16 PM Reporting Lab: [place] [facility] [address] [place] [address] Performing Lab: [place] [facility] [address] [place] [address] [place] [facility] CHOLESTER OL PANEL (PB) CHOLESTEROL IN HDL [MASS/VOLUM E] IN SERUM OR PLASMA 50.8 mg/dL 40 04/28 H Specimen Type: PLASMA No comment entered. Ordering Provider: MYRTLE GORMAN Report Released Date/Time: Apr 27, 2024 04:16 PM Reporting Lab: [place] [facility] [address] [place] [address] Performing Lab: [place] [facility] [address] [place] [address] [place] [facility] CHOLESTER OL PANEL (PB) CHOLESTEROL IN HDL/CHOLEST ROBBIN.TOTAL [MASS RATIO] IN SERUM OR PLASMA 22.5 25 04/28 Specimen Type: PLASMA No comment entered. Ordering Provider: MYRTLE GORMAN Report Released Date/Time: Apr 27, 2024 04:16 PM Reporting Lab: [place] [facility] [address] [place] [address] Performing Lab: [place] [facility] [address] [place] [address] [place] [facility] VITAMIN D, 25-HYDROX Y 25-HYDROXYV ITAMIN D3 [MASS/VOLUM E] IN SERUM OR PLASMA 45.3 ng/mL 30 - 96 04/28 Specimen Type: SERUM No comment entered. Ordering Provider: MYRTLE GORMAN R Report Released Date/Time: Apr 27, 2024 04:16 PM Reporting Lab: [place] [facility] [address] [place] [address] Performing Lab: [place] [facility] [address] [place] [address] [place] [facility] COMPREHEN SIVE METABOLIC PANEL CREATININE [MASS/VOLUM E] IN SERUM OR PLASMA 1.10 mg/dL 0.7 - 1.3 04/28 Specimen Type: PLASMA No comment entered. Ordering Provider: MYRTLE GORMAN R Report Released Date/Time: Apr 27, 2024 04:16 PM Reporting Lab: [place] [facility] [address] [place] [address] Performing Lab: [place] [facility] [address] [place] [address] [place] [facility] COMPREHEN SIVE METABOLIC PANEL UREA NITROGEN [MASS/VOLUM E] IN SERUM OR PLASMA 9 mg/dL 9 - 25 04/28 Specimen Type: PLASMA No comment entered. Ordering Provider: MYRTLE GORMAN R Report Released Date/Time: Apr 27, 2024 04:16 PM Reporting Lab: [place] [facility] [address] [place] [address] Performing Lab: [place] [facility] [address] [place] [address] [place] [facility] COMPREHEN SIVE METABOLIC PANEL GLUCOSE [MASS/VOLUM E] IN SERUM OR PLASMA 103 mg/dL 72 - 99 04/28 H Specimen Type: PLASMA No comment entered. Ordering Provider: MYRTLE GORMAN R Report Released Date/Time: Apr 27, 2024 04:16 PM Reporting Lab: [place] [facility] [address] [place] [address] Performing Lab: [place] [facility] [address] [place] [address] [place] [facility] COMPREHEN SIVE METABOLIC PANEL SODIUM [MOLES/VOLU ME] IN SERUM OR PLASMA 137 meq/L 136 - 145 04/28 Specimen Type: PLASMA No comment entered. Ordering Provider: MYRTLE GORMAN R Report Released Date/Time: Apr 27, 2024 04:16 PM Reporting Lab: [place] [facility] [address] [place] [address] Performing Lab: [place] [facility] [address] [place] [address] [place] [facility] COMPREHEN SIVE METABOLIC PANEL POTASSIUM [MOLES/VOLU ME] IN SERUM OR PLASMA 4.1 meq/L 3.5 - 5 04/28 Specimen Type: PLASMA No comment entered. Ordering Provider: MYRTLE GORMAN R Report Released Date/Time: Apr 27, 2024 04:16 PM Reporting Lab: [place] [facility] [address] [place] [address] Performing Lab: [place] [facility] [address] [place] [address] [place] [facility] COMPREHEN SIVE METABOLIC PANEL CHLORIDE [MOLES/VOLU ME] IN SERUM OR PLASMA 104 meq/L 98 - 107 04/28 Specimen Type: PLASMA No comment entered. Ordering Provider: MYRTLE GORMAN R Report Released Date/Time: Apr 27, 2024 04:16 PM Reporting Lab: [place] [facility] [address] [place] [address] Performing Lab: [place] [facility] [address] [place] [address] [place] [facility] COMPREHEN SIVE METABOLIC PANEL CARBON DIOXIDE, TOTAL [MOLES/VOLU ME] IN SERUM OR PLASMA 22 meq/L 22 - 31 04/28 Specimen Type: PLASMA No comment entered. Ordering Provider: MYRTLE GORMAN R Report Released Date/Time: Apr 27, 2024 04:16 PM Reporting Lab: [place] [facility] [address] [place] [address] Performing Lab: [place] [facility] [address] [place] [address] [place] [facility] COMPREHEN SIVE METABOLIC PANEL CALCIUM [MASS/VOLUM E] IN SERUM OR PLASMA 9.6 mg/dL 8.4 - 10.4 04/28 Specimen Type: PLASMA No comment entered. Ordering Provider: MYRTLE GORMAN R Report Released Date/Time: Apr 27, 2024 04:16 PM Reporting Lab: [place] [facility] [address] [place] [address] Performing Lab: [place] [facility] [address] [place] [address] [place] [facility] COMPREHEN SIVE METABOLIC PANEL PROTEIN [MASS/VOLUM E] IN SERUM OR PLASMA 8.1 g/dL 6 - 8.6 04/28 Specimen Type: PLASMA No comment entered. Ordering Provider: MYRTLE GORMAN R Report Released Date/Time: Apr 27, 2024 04:16 PM Reporting Lab: [place] [facility] [address] [place] [address] Performing Lab: [place] [facility] [address] [place] [address] [place] [facility] COMPREHEN SIVE METABOLIC PANEL ALBUMIN [MASS/VOLUM E] IN SERUM OR PLASMA 4.8 g/dL 3.4 - 5 04/28 Specimen Type: PLASMA No comment entered. Ordering Provider: MYRTLE GORMAN R Report Released Date/Time: Apr 27, 2024 04:16 PM Reporting Lab: [place] [facility] [address] [place] [address] Performing Lab: [place] [facility] [address] [place] [address] [place] [facility] COMPREHEN SIVE METABOLIC PANEL BILIRUBIN.T OTAL [MASS/VOLUM E] IN SERUM OR PLASMA 0.5 mg/dL 0.2 - 1.2 04/28 Specimen Type: PLASMA No comment entered. Ordering Provider: MYRTLE GORMAN R Report Released Date/Time: Apr 27, 2024 04:16 PM Reporting Lab: [place] [facility] [address] [place] [address] Performing Lab: [place] [facility] [address] [place] [address] [place] [facility] COMPREHEN SIVE METABOLIC PANEL ALKALINE PHOSPHATASE [ENZYMATIC ACTIVITY/VO LUME] IN SERUM OR PLASMA 115 U/L 40 - 150 04/28 Specimen Type: PLASMA No comment entered. Ordering Provider: MYRTLE GORMAN R Report Released Date/Time: Apr 27, 2024 04:16 PM Reporting Lab: [place] [facility] [address] [place] [address] Performing Lab: [place] [facility] [address] [place] [address] [place] [facility] COMPREHEN SIVE METABOLIC PANEL ASPARTATE AMINOTRANSF ERASE [ENZYMATIC ACTIVITY/VO LUME] IN SERUM OR PLASMA 26 U/L 5 - 34 04/28 Specimen Type: PLASMA No comment entered. Ordering Provider: MYRTLE GORMAN R Report Released Date/Time: Apr 27, 2024 04:16 PM Reporting Lab: [place] [facility] [address] [place] [address] Performing Lab: [place] [facility] [address] [place] [address] [place] [facility] COMPREHEN SIVE METABOLIC PANEL ALANINE AMINOTRANSF ERASE [ENZYMATIC ACTIVITY/VO LUME] IN SERUM OR PLASMA 38 U/L 8 - 40 04/28 Specimen Type: PLASMA No comment entered. Ordering Provider: MYRTLE GORMAN R Report Released Date/Time: Apr 27, 2024 04:16 PM Reporting Lab: [place] [facility] [address] [place] [address] Performing Lab: [place] [facility] [address] [place] [address] [place] [facility] COMPREHEN SIVE METABOLIC PANEL GLOMERULAR FILTRATION RATE/1.73 SQ M.PREDICTED [VOLUME RATE/AREA] IN SERUM, PLASMA OR BLOOD BY CREATININE- BASED FORMULA (CKD-EPI 2020) 89 04/28 Specimen Type: PLASMA No comment entered. Ordering Provider: MYRTLE GORMAN R Report Released Date/Time: Apr 27, 2024 04:16 PM Reporting Lab: [place] [facility] [address] [place] [address] Performing Lab: [place] [facility] [address] [place] [address] [place] [facility] CBC LEUKOCYTES [#/VOLUME] IN BLOOD BY AUTOMATED COUNT 7.1 10*3/uL 3.6 - 11.2 04/28 Specimen Type: BLOOD No comment entered. Ordering Provider: MYRTLE GORMAN R Report Released Date/Time: Apr 27, 2024 04:16 PM Reporting Lab: [place] [facility] [address] [place] [address] Performing Lab: [place] [facility] [address] [place] [address] [place] [facility] CBC ERYTHROCYTE S [#/VOLUME] IN BLOOD BY AUTOMATED COUNT 5.21 10*6/uL 4.10 - 5.70 04/28 Specimen Type: BLOOD No comment entered. Ordering Provider: MYRTLE GORMAN R Report Released Date/Time: Apr 27, 2024 04:16 PM Reporting Lab: [place] [facility] [address] [place] [address] Performing Lab: [place] [facility] [address] [place] [address] [place] [facility] CBC HEMOGLOBIN [MASS/VOLUM E] IN BLOOD 16.4 g/dL 13.1 - 16.8 04/28 Specimen Type: BLOOD No comment entered. Ordering Provider: MYRTLE GORMAN R Report Released Date/Time: Apr 27, 2024 04:16 PM Reporting Lab: [place] [facility] [address] [place] [address] Performing Lab: [place] [facility] [address] [place] [address] [place] [facility] CBC HEMATOCRIT [VOLUME FRACTION] OF BLOOD 47.6 38.2 - 48.4 04/28 Specimen Type: BLOOD No comment entered. Ordering Provider: MYRTLE GORMAN R Report Released Date/Time: Apr 27, 2024 04:16 PM Reporting Lab: [place] [facility] [address] [place] [address] Performing Lab: [place] [facility] [address] [place] [address] [place] [facility] CBC MCV [ENTITIC VOLUME] BY AUTOMATED COUNT 91.4 fL 80.0 - 100.0 04/28 Specimen Type: BLOOD No comment entered. Ordering Provider: MYRTLE GORMAN R Report Released Date/Time: Apr 27, 2024 04:16 PM Reporting Lab: [place] [facility] [address] [place] [address] Performing Lab: [place] [facility] [address] [place] [address] [place] [facility] CBC MCH [ENTITIC MASS] BY AUTOMATED COUNT 31.5 pg 27.0 - 34.0 04/28 Specimen Type: BLOOD No comment entered. Ordering Provider: MYRTLE GORMAN R Report Released Date/Time: Apr 27, 2024 04:16 PM Reporting Lab: [place] [facility] [address] [place] [address] Performing Lab: [place] [facility] [address] [place] [address] [place] [facility] CBC MCHC [MASS/VOLUM E] BY AUTOMATED COUNT 34.5 g/dL 33.0 - 36.0 04/28 Specimen Type: BLOOD No comment entered. Ordering Provider: MYRTLE GORMAN R Report Released Date/Time: Apr 27, 2024 04:16 PM Reporting Lab: [place] [facility] [address] [place] [address] Performing Lab: [place] [facility] [address] [place] [address] [place] [facility] CBC PLATELETS [#/VOLUME] IN BLOOD BY AUTOMATED COUNT 294 10*3/uL 150 - 400 04/28 Specimen Type: BLOOD No comment entered. Ordering Provider: MYRTLE GORMAN R Report Released Date/Time: Apr 27, 2024 04:16 PM Reporting Lab: [place] [facility] [address] [place] [address] Performing Lab: [place] [facility] [address] [place] [address] [place] [facility] CBC PLATELET MEAN VOLUME [ENTITIC VOLUME] IN BLOOD BY AUTOMATED COUNT 9.7 fL 7.5 - 11.2 04/28 Specimen Type: BLOOD No comment entered. Ordering Provider: MYRTLE GORMAN R Report Released Date/Time: Apr 27, 2024 04:16 PM Reporting Lab: [place] [facility] [address] [place] [address] Performing Lab: [place] [facility] [address] [place] [address] [place] [facility] CBC ERYTHROCYTE DISTRIBUTIO N WIDTH [RATIO] BY AUTOMATED COUNT 13.2 11.8 - 15.1 04/28 Specimen Type: BLOOD No comment entered. Ordering Provider: MYRTLE GORMAN R Report Released Date/Time: Apr 27, 2024 04:16 PM Reporting Lab: [place] [facility] [address] [place] [address] Performing Lab: [place] [facility] [address] [place] [address] [place] [facility] CBC LYMPHOCYTES /100 LEUKOCYTES IN BLOOD BY AUTOMATED COUNT 29.4 04/28 Specimen Type: BLOOD No comment entered. Ordering Provider: MYRTLE GORMAN R Report Released Date/Time: Apr 27, 2024 04:16 PM Reporting Lab: [place] [facility] [address] [place] [address] Performing Lab: [place] [facility] [address] [place] [address] [place] [facility] CBC MONOCYTES/1 00 LEUKOCYTES IN BLOOD BY AUTOMATED COUNT 7.0 04/28 Specimen Type: BLOOD No comment entered. Ordering Provider: MYRTLE GORMAN R Report Released Date/Time: Apr 27, 2024 04:16 PM Reporting Lab: [place] [facility] [address] [place] [address] Performing Lab: [place] [facility] [address] [place] [address] [place] [facility] CBC NEUTROPHILS /100 LEUKOCYTES IN BLOOD BY AUTOMATED COUNT 62.0 04/28 Specimen Type: BLOOD No comment entered. Ordering Provider: MYRTLE GORMAN R Report Released Date/Time: Apr 27, 2024 04:16 PM Reporting Lab: [place] [facility] [address] [place] [address] Performing Lab: [place] [facility] [address] [place] [address] [place] [facility] CBC EOSINOPHILS /100 LEUKOCYTES IN BLOOD BY AUTOMATED COUNT 0.9 04/28 Specimen Type: BLOOD No comment entered. Ordering Provider: MYRTLE GORMAN R Report Released Date/Time: Apr 27, 2024 04:16 PM Reporting Lab: [place] [facility] [address] [place] [address] Performing Lab: [place] [facility] [address] [place] [address] [place] [facility] CBC BASOPHILS/1 00 LEUKOCYTES IN BLOOD BY AUTOMATED COUNT 0.4 04/28 Specimen Type: BLOOD No comment entered. Ordering Provider: MYRTLE GORMAN R Report Released Date/Time: Apr 27, 2024 04:16 PM Reporting Lab: [place] [facility] [address] [place] [address] Performing Lab: [place] [facility] [address] [place] [address] [place] [facility] CBC LYMPHOCYTES [#/VOLUME] IN BLOOD BY AUTOMATED COUNT 2.07 10*3/uL 0.77 - 4.50 04/28 Specimen Type: BLOOD No comment entered. Ordering Provider: MYRTLE GORMAN R Report Released Date/Time: Apr 27, 2024 04:16 PM Reporting Lab: [place] [facility] [address] [place] [address] Performing Lab: [place] [facility] [address] [place] [address] [place] [facility] CBC MONOCYTES [#/VOLUME] IN BLOOD BY AUTOMATED COUNT 0.49 10*3/uL 0.19 - 0.8 04/28 Specimen Type: BLOOD No comment entered. Ordering Provider: MYRTLE GORMAN R Report Released Date/Time: Apr 27, 2024 04:16 PM Reporting Lab: [place] [facility] [address] [place] [address] Performing Lab: [place] [facility] [address] [place] [address] [place] [facility] CBC NEUTROPHILS [#/VOLUME] IN BLOOD BY AUTOMATED COUNT 4.38 10*3/uL 2.10 - 8.00 04/28 Specimen Type: BLOOD No comment entered. Ordering Provider: MYRTLE GORMAN Report Released Date/Time: Apr 27, 2024 04:16 PM Reporting Lab: [place] [facility] [address] [place] [address] Performing Lab: [place] [facility] [address] [place] [address] [place] [facility] CBC EOSINOPHILS [#/VOLUME] IN BLOOD BY AUTOMATED COUNT 0.06 10*3/uL 0.00 - 0.60 04/28 Specimen Type: BLOOD No comment entered. Ordering Provider: MYRTLE GORMAN R Report Released Date/Time: Apr 27, 2024 04:16 PM Reporting Lab: [place] [facility] [address] [place] [address] Performing Lab: [place] [facility] [address] [place] [address] [place] [facility] CBC BASOPHILS [#/VOLUME] IN BLOOD BY AUTOMATED COUNT 0.03 10*3/uL 0.00 - 0.20 04/28 Specimen Type: BLOOD No comment entered. Ordering Provider: MYRTLE GORMAN R Report Released Date/Time: Apr 27, 2024 04:16 PM Reporting Lab: [place] [facility] [address] [place] [address] Performing Lab: [place] [facility] [address] [place] [address] [place] [facility] CBC IMMATURE GRANULOCYTE S/100 LEUKOCYTES IN BLOOD BY AUTOMATED COUNT 0.3 04/28 Specimen Type: BLOOD No comment entered. Ordering Provider: MYRTLE GORMAN R Report Released Date/Time: Apr 27, 2024 04:16 PM Reporting Lab: [place] [facility] [address] [place] [address] Performing Lab: [place] [facility] [address] [place] [address] [place] [facility] CBC IMMATURE GRANULOCYTE S [#/VOLUME] IN BLOOD BY AUTOMATED COUNT 0.02 10*3/uL 0.00 - 0.05 04/28 Specimen Type: BLOOD No comment entered. Ordering Provider: MYRTLE GORMAN R Report Released Date/Time: Apr 27, 2024 04:16 PM Reporting Lab: [place] [facility] [address] [place] [address] Performing Lab: [place] [facility] [address] [place] [address] [place] [facility] URINALYSI S (STL-PB) COLOR OF URINE Watson 04/28 Specimen Type: URINE No comment entered. Ordering Provider: MYRTLE GORMAN Report Released Date/Time: Apr 27, 2024 04:16 PM Reporting Lab: [place] [facility] [address] [place] [address] Performing Lab: [place] [facility] [address] [place] [address] [place] [facility] URINALYSI S (STL-PB) BILIRUBIN.T OTAL [PRESENCE] IN URINE BY TEST STRIP NEGATIVE mg/dL 04/28 Specimen Type: URINE No comment entered. Ordering Provider: MYRTLE GORMAN Report Released Date/Time: Apr 27, 2024 04:16 PM Reporting Lab: [place] [facility] [address] [place] [address] Performing Lab: [place] [facility] [address] [place] [address] [place] [facility] URINALYSI S (STL-PB) PH OF URINE BY TEST STRIP 5.5 5.0 - 8.0 04/28 Specimen Type: URINE No comment entered. Ordering Provider: MYRTLE GORMAN Report Released Date/Time: Apr 27, 2024 04:16 PM Reporting Lab: [place] [facility] [address] [place] [address] Performing Lab: [place] [facility] [address] [place] [address] [place] [facility] URINALYSI S (STL-PB) LEUKOCYTES [#/AREA] IN URINE SEDIMENT BY MICROSCOPY HIGH POWER FIELD 1 /[HPF] 0 - 5 04/28 Specimen Type: URINE No comment entered. Ordering Provider: MYRTLE GORMAN R Report Released Date/Time: Apr 27, 2024 04:16 PM Reporting Lab: [place] [facility] [address] [place] [address] Performing Lab: [place] [facility] [address] [place] [address] [place] [facility] URINALYSI S (STL-PB) ERYTHROCYTE S [#/VOLUME] IN URINE SEDIMENT BY MICROSCOPY HIGH POWER FIELD 4 /[HPF] 0 - 5 04/28 Specimen Type: URINE No comment entered. Ordering Provider: MYRTLE GORMAN R Report Released Date/Time: Apr 27, 2024 04:16 PM Reporting Lab: [place] [facility] [address] [place] [address] Performing Lab: [place] [facility] [address] [place] [address] [place] [facility] URINALYSI S (STL-PB) APPEARANCE OF URINE TURBID 04/28 H Specimen Type: URINE No comment entered. Ordering Provider: MYRTLE GORMAN R Report Released Date/Time: Apr 27, 2024 04:16 PM Reporting Lab: [place] [facility] [address] [place] [address] Performing Lab: [place] [facility] [address] [place] [address] [place] [facility] URINALYSI S (STL-PB) NITRITE [PRESENCE] IN URINE BY TEST STRIP NEGATIVE mg/dL 04/28 Specimen Type: URINE No comment entered. Ordering Provider: MYRTLE GORMAN R Report Released Date/Time: Apr 27, 2024 04:16 PM Reporting Lab: [place] [facility] [address] [place] [address] Performing Lab: [place] [facility] [address] [place] [address] [place] [facility] URINALYSI S (STL-PB) MUCUS [PRESENCE] IN URINE SEDIMENT BY LIGHT MICROSCOPY MANY/[LP F] 04/28 H Specimen Type: URINE No comment entered. Ordering Provider: MYRTLE GORMAN R Report Released Date/Time: Apr 27, 2024 04:16 PM Reporting Lab: [place] [facility] [address] [place] [address] Performing Lab: [place] [facility] [address] [place] [address] [place] [facility] URINALYSI S (STL-PB) URATE CRYSTALS AMORPHOUS [PRESENCE] IN URINE SEDIMENT BY LIGHT MICROSCOPY RARE/[HP F] 04/28 Specimen Type: URINE No comment entered. Ordering Provider: MYRTLE GORMAN Report Released Date/Time: Apr 27, 2024 04:16 PM Reporting Lab: [place] [facility] [address] [place] [address] Performing Lab: [place] [facility] [address] [place] [address] [place] [facility] URINALYSI S (STL-PB) GLUCOSE [MASS/VOLUM E] IN URINE BY TEST STRIP NORMALmg /dL 04/28 Specimen Type: URINE No comment entered. Ordering Provider: MYRTLE GORMAN Report Released Date/Time: Apr 27, 2024 04:16 PM Reporting Lab: [place] [facility] [address] [place] [address] Performing Lab: [place] [facility] [address] [place] [address] [place] [facility] URINALYSI S (STL-PB) PROTEIN [MASS/VOLUM E] IN URINE BY TEST STRIP NEGATIVE mg/dL 04/28 Specimen Type: URINE No comment entered. Ordering Provider: MYRTLE GORMAN Report Released Date/Time: Apr 27, 2024 04:16 PM Reporting Lab: [place] [facility] [address] [place] [address] Performing Lab: [place] [facility] [address] [place] [address] [place] [facility] URINALYSI S (STL-PB) URN.UROBILI NOGEN NORMALmg /dL 04/28 Specimen Type: URINE No comment entered. Ordering Provider: MYRTLE GORMAN Report Released Date/Time: Apr 27, 2024 04:16 PM Reporting Lab: [place] [facility] [address] [place] [address] Performing Lab: [place] [facility] [address] [place] [address] [place] [facility] URINALYSI S (STL-PB) HEMOGLOBIN [MASS/VOLUM E] IN URINE BY TEST STRIP NEGATIVE mg/dL 04/28 Specimen Type: URINE No comment entered. Ordering Provider: GORMAN,CAT HERINE R Report Released Date/Time: Apr 27, 2024 04:16 PM Reporting Lab: [place] [facility] [address] [place] [address] Performing Lab: [place] [facility] [address] [place] [address] [place] [facility] URINALYSI S (STL-PB) KETONES [MASS/VOLUM E] IN URINE BY TEST STRIP NEGATIVE mg/dL 04/28 Specimen Type: URINE No comment entered. Ordering Provider: MYRTLE GORMAN R Report Released Date/Time: Apr 27, 2024 04:16 PM Reporting Lab: [place] [facility] [address] [place] [address] Performing Lab: [place] [facility] [address] [place] [address] [place] [facility] URINALYSI S (STL-PB) URN.LEUK.ES T. NEGATIVE 04/28 Specimen Type: URINE No comment entered. Ordering Provider: MYRTLE GORMAN R Report Released Date/Time: Apr 27, 2024 04:16 PM Reporting Lab: [place] [facility] [address] [place] [address] Performing Lab: [place] [facility] [address] [place] [address] [place] [facility] URINALYSI S (STL-PB) SPECIFIC GRAVITY OF URINE 1.024 1.005 - 1.029 04/28 Specimen Type: URINE No comment entered. Ordering Provider: MYRTLE GORMAN R Report Released Date/Time: Apr 27, 2024 04:16 PM Reporting Lab: [place] [facility] [address] [place] [address] Performing Lab: [place] [facility] [address] [place] [address] [place] [facility] VITAMIN D, 25-HYDROX Y 25-HYDROXYV ITAMIN D3 [MASS/VOLUM E] IN SERUM OR PLASMA 49.5 ng/mL 30 - 96 04/29 Specimen Type: SERUM No comment entered. Ordering Provider: GORMAN,CAT HERINE R Report Released Date/Time: Apr 29, 2023 10:02 AM Reporting Lab: [place] [facility] [address] [place] [address] Performing Lab: [place] [facility] [address] [place] [address] [facility] URINALYSI S (PB) COLOR OF URINE Yellow 04/29 Specimen Type: URINE Comment: Microscopic not indicated Ordering Provider: MYRTLE GORMAN Report Released Date/Time: Apr 29, 2023 10:02 AM Reporting Lab: [place] [facility] [address] [place] [address] Performing Lab: [place] [facility] [address] [place] [address] [facility] URINALYSI S (PB) SPECIFIC GRAVITY OF URINE 1.017 1.005 - 1.030 04/29 Specimen Type: URINE Comment: Microscopic not indicated Ordering Provider: MYRTLE GORMAN Report Released Date/Time: Apr 29, 2023 10:02 AM Reporting Lab: [place] [facility] [address] [place] [address] Performing Lab: [place] [facility] [address] [place] [address] [facility] URINALYSI S (PB) UROBILINOGE N [MASS/VOLUM E] IN URINE BY TEST STRIP NORMALmg /dL 04/29 Specimen Type: URINE Comment: Microscopic not indicated Ordering Provider: MYRTLE GORMAN Report Released Date/Time: Apr 29, 2023 10:02 AM Reporting Lab: [place] [facility] [address] [place] [address] Performing Lab: [place] [facility] [address] [place] [address] [facility] URINALYSI S (PB) BILIRUBIN.T OTAL [PRESENCE] IN URINE BY TEST STRIP NEGATIVE mg/dL 04/29 Specimen Type: URINE Comment: Microscopic not indicated Ordering Provider: MYRTLE GORMAN Report Released Date/Time: Apr 29, 2023 10:02 AM Reporting Lab: [place] [facility] [address] [place] [address] Performing Lab: [place] [facility] [address] [place] [address] [facility] URINALYSI S (PB) KETONES [MASS/VOLUM E] IN URINE BY TEST STRIP NEGATIVE mg/dL 04/29 Specimen Type: URINE Comment: Microscopic not indicated Ordering Provider: MYRTLE GORMAN R Report Released Date/Time: Apr 29, 2023 10:02 AM Reporting Lab: [place] [facility] [address] [place] [address] Performing Lab: [place] [facility] [address] [place] [address] [facility] URINALYSI S (PB) GLUCOSE [MASS/VOLUM E] IN URINE BY TEST STRIP NEGATIVE mg/dL - 49 04/29 Specimen Type: URINE Comment: Microscopic not indicated Ordering Provider: MYRTLE GORMAN R Report Released Date/Time: Apr 29, 2023 10:02 AM Reporting Lab: [place] [facility] [address] [place] [address] Performing Lab: [place] [facility] [address] [place] [address] [facility] URINALYSI S (PB) PH OF URINE BY TEST STRIP 5.0 5.0 - 8.0 04/29 Specimen Type: URINE Comment: Microscopic not indicated Ordering Provider: MYRTLE GORMAN R Report Released Date/Time: Apr 29, 2023 10:02 AM Reporting Lab: [place] [facility] [address] [place] [address] Performing Lab: [place] [facility] [address] [place] [address] [facility] URINALYSI S (PB) APPEARANCE OF URINE Clear 04/29 Specimen Type: URINE Comment: Microscopic not indicated Ordering Provider: MYRTLE GORMAN R Report Released Date/Time: Apr 29, 2023 10:02 AM Reporting Lab: [place] [facility] [address] [place] [address] Performing Lab: [place] [facility] [address] [place] [address] [facility] URINALYSI S (PB) HEMOGLOBIN [MASS/VOLUM E] IN URINE BY TEST STRIP NEGATIVE mg/dL 04/29 Specimen Type: URINE Comment: Microscopic not indicated Ordering Provider: MYRTLE GORMAN Report Released Date/Time: Apr 29, 2023 10:02 AM Reporting Lab: [place] [facility] [address] [place] [address] Performing Lab: [place] [facility] [facility] [address] [place] [address] [facility] URINALYSI S (PB) NITRITE [PRESENCE] IN URINE BY TEST STRIP NEGATIVE mg/dL 04/29 Specimen Type: URINE Comment: Microscopic not indicated Ordering Provider: MYRTLE GORMAN Report Released Date/Time: Apr 29, 2023 10:02 AM Reporting Lab: [place] [facility] [address] [place] [address] Performing Lab: [place] [facility] [address] [place] [address] [facility] URINALYSI S (PB) LEUKOCYTE ESTERASE [PRESENCE] IN URINE BY TEST STRIP NEGATIVE 04/29 Specimen Type: URINE Comment: Microscopic not indicated Ordering Provider: MYRTLE GORMAN Report Released Date/Time: Apr 29, 2023 10:02 AM Reporting Lab: [place] [facility] [address] [place] [address] Performing Lab: [place] [facility] [address] [place] [address] [facility] URINALYSI S (PB) PROTEIN [PRESENCE] IN URINE BY TEST STRIP NEGATIVE mg/dL 04/29 Specimen Type: URINE Comment: Microscopic not indicated Ordering Provider: MYRTLE GORMAN Report Released Date/Time: Apr 29, 2023 10:02 AM Reporting Lab: [place] [facility] [address] [place] [address] Performing Lab: [place] [facility] [address] [place] [address] [facility] TSH (MA-PB-ST L) THYROTROPIN [UNITS/VOLU ME] IN SERUM OR PLASMA 2.180 u[IU]/mL 0.47 - 5 04/29 Specimen Type: SERUM No comment entered. Ordering Provider: MYRTLE GORMAN Report Released Date/Time: Apr 29, 2023 10:02 AM Reporting Lab: [place] [facility] [address] [place] [address] Performing Lab: [place] [facility] [address] [place] [address] [facility] Vital Signs Combined list of inpatient and outpatient Vital Signs from Department of [facility] and [facility], ranging from 12 months to all on record, depending upon the facility. Vital Sign Value Date Comments Source SYSTOLIC BLOOD PRESSURE 123 04/28/2024 11:02:05 [facility] DIASTOLIC BLOOD PRESSURE 88 04/28/2024 11:02:05 [facility] PULSE OXIMETRY 96 04/28/2024 11:02:05 [facility] WEIGHT 215.4 04/28/2024 11:02:05 [facility] BMI 32 kg/m2 04/28/2024 11:02:05 [facility] PAIN 0 04/28/2024 11:02:05 [facility] HEIGHT 69 04/28/2024 11:02:05 [facility] PULSE 85 04/28/2024 11:02:05 [facility] RESPIRATION 18 04/28/2024 11:02:05 [facility] Encounters Combined list of: 1) Encounters from Department of Veterans Affairs facilities going backup to the last 18 months, not all [place] inpatient encounters are included; 2) Encounters from the Department of [facility] facilities going backup to 280 months. Location Location Details Encounter Type Encounter Number Reason For Visit Attending Provider ADM Date DC Date Status Disposition Source [facility]( aring Conservat ion - [place]) OUTPATIENT [id number] VALERIE DOS SANTOS 04/13 Released w/o Limitations [facility]( Hearing Conserv ation - [place]) [facility](He aring Conserv-B 65) OUTPATIENT [id number] NURA HEATON 10/08 Released w/o Limitations [facility]( Hearing Conserv -B65) [facility](He aring Conserv-B 65) OUTPATIENT [id number] NURA HEATON OTIS 10/08 Released w/o Limitations [facility]( Hearing Conserv -B65) [facility](Op tometry [address]) OUTPATIENT [id number] OLIVIER Powers 10/13 Released w/o Limitations [facility]( Optomet ry [address]) [facility] Outpatient Encounter [id number] 09/26 [facility] [place] [facility] OFFICE O/P EST LOW 20 MIN [id number] Diagnos is: ICD-10- CM M79.641 Pain in right hand SHOSHANA TANNER HARDIK S 09/26 [place] [facility] Outpatient Encounter [id number] 10/12 [facility] Outpatient Encounter [id number] 10/20 [facility] OFFICE O/P EST LOW 20 MIN [id number] Diagnos is: ICD-10- CM M25.522 Pain in left elbow ALEXANDRA GORMAN R 10/20 [facility] [id number] 10/26 [facility] Outpatient Encounter [id number] 11/28 [facility] [id number] 03/13 [place] [facility] Outpatient Encounter [id number] ALEXANDRA GORMAN 04/28 [facility] Outpatient Encounter [id number] Diagnos is: ICD-10- CM Z00.00 Encntr for general adult medical exam w/o abnorma l finding s ALEXANDRA GORMAN 04/28 [facility] Procedures Combined list of: 1) Procedures from Department of Veterans Affairs facilities going back up to thelast 18 months, not all [place] non-surgical procedures are included; 2) All procedures from the Department of Defense facilities. Procedure Procedure Type Code Date Perfomer Comments Sourc e Ophthalmological Prior Patient Start Intermediate Level Care Ophthalmological Prior Patient Start Intermediate Level Care [id number] 10/14/19 11 OLIVIER CROSS [facility] Threshold Audiogram (Pure Tone) Threshold Audiogram (Pure Tone) [id number] 10/09/19 11 NURA HEATON [facility] Threshold Audiogram (Pure Tone) Threshold Audiogram (Pure Tone) [id number] 04/13/20 08 VALERIE DOS SANTOS [facility] NONINVASIVE EAR OR PULSE OXIMETRY FOR OXYGEN SATURATION; SINGLE DETERMINATION 05/28/20 07 [facility] IMMUNIZATION ADMINISTRATION (INCLUDES PERCUTANEOUS, INTRADERMAL, SUBCUTANEOUS, OR INTRAMUSCULAR INJECTIONS); 1 VACCINE (SINGLE OR COMBINATION VACCINE/TOXOID) 03/30/20 07 [facility] PURE TONE AUDIOMETRY (THRESHOLD); AIR ONLY 03/29/20 07 [facility] OPHTHALMOLOGICAL SERVICES: MEDICAL EXAMINATION AND EVALUATION WITH INITIATION OF DIAGNOSTIC AND TREATMENT PROGRAM; INTERMEDIATE, NEW PATIENT 03/25/20 07 [facility] OPHTHALMOLOGICAL SERVICES: MEDICAL EXAMINATION AND EVALUATION, WITH INITIATION OR CONTINUATION OF DIAGNOSTIC AND TREATMENT PROGRAM; INTERMEDIATE, ESTABLISHED PATIENT 10/14/19 11 [facility] PURE TONE AUDIOMETRY (THRESHOLD); AIR ONLY 10/09/19 11 [facility] PURE TONE AUDIOMETRY (THRESHOLD); AIR ONLY 04/13/20 08 [facility] Social History Combined list of available smoking, tobacco, and other social history from Department of Defense and Veterans Affairs facilities. Social History Type Response Date Comment Sourc e Tobacco smoking status NHIS VA-TOBACCO NEVER USED 04/28/2024 [facility] [place] [facility] History of tobacco use VA-TOBACCO NEVER USED 04/29/2023 [facility] [place] [facility] History of tobacco use VA-TOBACCO NEVER USED 04/30/2022 [facility] History of tobacco use VA-TOBACCO NEVER USED 04/15/2021 [facility] History of tobacco use VA-TOBACCO NEVER USED 05/09/2020 [facility] [place] [facility] History of tobacco use VA-TOBACCO NEVER USED 12/27/2018 [facility] History of tobacco use LIFETIME NON-USER OF TOBACCO 04/08/2011 [facility] This section is an empty social history section. [facility] Plan of Care List of future care activities from Department of Veterans Affairs facilities. Additional future care activities may be listed in the Assessment and Plan section. Date/Time Care Activity Care Activity Detail Facili ty 04/26/2025 AMBULATORY - MEDICINE AMBULATORY - MEDICI NE [facility] Advance Directives List of completed, amended, or rescinded Advance Directives on record at Department of [facility] facilities. An actual copy of the Directive is not included. Date Advance Directive Provider Source 05/22/2011 ADVANCE DIRECTIVE DISCUSSION DENNY ELIZABETH [facility] [place] [facility] 04/09/2011 ADVANCE DIRECTIVE DISCUSSION DENNY ELIZABETH [facility] 12/12/2010 ADVANCE DIRECTIVE SEDA DEAN [facility]
--- OUTSIDE RECORDS SUMMARY | 2025-02-11 13:55 | XMS_ITS | Clinical Summary ---
Author Organization [facility] Address [address] [place] [address] Phone Care Team Providers Care Subway Operator Name Role Phone Unavailable Primary Care Provider Unavailabl e Allergies Active Allergy Reactions Criticality Noted Date Comments Cefaclor 10/23/2015 Medications atorvastatin (LIPITOR) 10 MG tablet Take 5 mg by mouth one (1) time a day Active Active Problems Problem Noted Date Diagnosed Date Thyroid nodule 04/27/2016 PTSD (post-traumatic stress disorder) 10/23/2015 Resolved Problems Problem Noted Date Diagnosed Date Resolved Date Thyroid cyst 10/23/2015 04/27/2016 Family History Medical History Relation Name Comments No Known Problems Father No Known Problems Mother Relation Name Status Comments Father Alive Mother Alive Social History Tobacco Use Types Packs/Day Years Used Date Smoking Tobacco: Never Smokeless Tobacco: Never Alcohol Use Standard Drinks/Week Comments No 0 (1 standard drink = 0.6 oz pur e alcohol) Sex and Gender Information Value Date Recorded Sex Assigned at Not on file 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 Gender Identity Not on file Sexual Orientation Not on file Last Filed Vital Signs Vital Sign Reading Time Taken Comments Blood Pressure 131/94 04/27/2018 1:17 PM CDT Pulse 84 04/27/2018 1:17 PM CDT Temperature - - Respiratory Rate 18 04/27/2018 1:17 PM CDT Oxygen Saturation 99% 04/27/2017 2:11 PM CDT Inhaled Oxygen Concentration - - Weight 95.7 kg (211 lb) 04/27/2018 1:17 PM CDT Height 177.8 cm (5' 10 ) 04/27/2018 1:17 PM CDT Body Mass Index 30.28 04/27/2018 1:17 PM CDT Plan of Treatment Health Maintenance Due Date Last Done Comments Annual Depression Screening 1998 DTap/Tdap/Td Vaccines (5 - Tdap) 10/20/2000 10/19/2000, 03/04/1993, 10/27/1990, Additional history exists Hepatitis C Antibody Screen 2005 Influenza Vaccine 03/26/2025
--- OUTSIDE RECORDS SUMMARY | 2025-02-11 13:55 | XMS_ITS | Clinical Summary ---
Author Organization [facility] Address [address] [place] [address] Phone Care Team Providers Care Coat Check Attendant Name Role Phone Unavailable Primary Care Provider Unavailabl e Medications atorvastatin (LIPITOR) 10 mg tablet Take 5 mg by mouth daily. Active Active Problems No known active problems Social History Tobacco Use Types Packs/Day Years Used Date Smoking Tobacco: Never Assessed Comments Unknown Sex and Gender Information Value Date Recorded Sex Assigned at Not on file Legal Sex Unknown 10/04/2023 1:03 PM CDT Gender Identity Not on file Sexual Orientation Not on file Last Filed Vital Signs Vital Sign Reading Time Taken Comments Blood Pressure 130/82 11/16/2023 10:45 AM CDT Pulse - - Temperature - - Respiratory Rate - - Oxygen Saturation - - Inhaled Oxygen Concentration - - Weight 97 kg (213 lb 12.8 oz) 11/16/2023 10:45 A M CDT Height 175.3 cm (5' 9 ) 11/16/2023 10:45 AM CDT Body Mass Index 31.57 11/16/2023 10:45 AM CDT Plan of Treatment Health Maintenance Due Date Last Done Comments HPV/Cotest (21-29) 2008 CERVICAL CANCER SCREENING 2017 HPV/Cotest (30-65) 2017 PAP SMEAR 2017 INFLUENZA VACCINE (#1) 2025 8, 04/15/2016, 05/10/2015, Additional history exists DTAP/TDAP/TD VACCINES (3 - Td or Tdap) 07/26/2025 07/26/2015, 04/18/2013 HEPATITIS B VACCINES Completed 10/16/2009, 12/28/2007, 03/23/2007 HPV VACCINES Aged Out No longer eligi ble based on patient's age to complete this topic Insurance * Guarantor: [employer] [facility]) Account Type Relation to Patient Date of Phone Billing Address Corporate Other DEFAULT ADDRESS [place] [id number] [facility] [employer]
[2025-02-11] MEDS: tetanus-dipt-pertussis 0.5 mL SDV IM (14:08)
--- NOTE | 2025-02-11 14:09 | CTR_ITS ---
PROCEDURE INFORMATION: Exam: CT Head Without Contrast Exam date and time: 02/11/2025 2:16 PM Age: 39 years old Clinical indication: Injury or trauma; Fall; Blunt trauma (contusions or hematomas); With loss of consciousness; Not specified; Additional info: Fall with altered mentation, unknown loc time TECHNIQUE: Imaging protocol: Computed tomography of the head without contrast. Axial, coronal and sagittal reformatted images were created and reviewed. Radiation optimization: All CT scans at this facility use at least one of these dose optimization techniques: automated exposure control; mA and/or kV adjustment per patient size (includes targeted exams where dose is matched to clinical indication); or iterative reconstruction. COMPARISON: CT head wo con* [id number] 07/27/2018 3:58 PM RADIATION DOSE METRICS: Total DLP (mGy-cm): 1151.3 FINDINGS: Brain: No CT evidence of acute intracranial hemorrhage or acute territorial infarction. No significant mass effect or midline shift. Basal cisterns patent. Cerebral ventricles: Normal in size and configuration. Paranasal sinuses: Unremarkable. No fluid levels. Mastoid air cells: Grossly unremarkable. Bones: Unremarkable. No acute fracture. Soft tissues: Grossly unremarkable. CT/CT head wo con* [id number] IMPRESSION: No CT evidence of acute intracranial pathology.
--- NOTE | 2025-02-11 14:09 | CTR_ITS ---
PROCEDURE INFORMATION: Exam: CT Cervical Spine Without Contrast Exam date and time: 02/11/2025 2:16 PM Age: 39 years old Clinical indication: Injury or trauma; Fall; Blunt trauma; Additional info: Fall with altered mentation, unknown loc time TECHNIQUE: Imaging protocol: Computed tomography of the cervical spine without contrast. Axial, coronal and sagittal reformatted images were created and reviewed. Radiation optimization: All CT scans at this facility use at least one of these dose optimization techniques: automated exposure control; mA and/or kV adjustment per patient size (includes targeted exams where dose is matched to clinical indication); or iterative reconstruction. COMPARISON: MR cervical spin wo con* [id number] 04/04/2018 9:31 AM RADIATION DOSE METRICS: Total DLP (mGy-cm): 260.4 FINDINGS: Bones: Straightening of the normal cervical lordosis. No CT evidence of acute fracture, dislocation or subluxation. Alignment anatomic. Vertebral body heights maintained. Intervertebral disc spaces preserved. No significant spinal canal or neural foraminal stenosis. Thyroid Gland: 1 cm low-density right thyroid nodule (no follow-up is indicated based on the imaging appearance). Lungs: Lung apices are normal. Soft tissues: Grossly unremarkable. CT/CT cervical spin wo con* [id number] IMPRESSION: 1. No CT evidence of acute cervical spine traumatic injury. 2. Additional findings, as above.
--- NOTE | 2025-02-11 14:10 | W.ED.HEATRA ---
HPI - Head Injury General: Chief complaint: Head Injury Stated complaint: right side head wound Time Seen by Provider: 02/11/25 13:48 History of Present Illness: Patient is a pleasant 39-year-old gentleman that was walking on concrete, by himself, tripped, fall, unknown amount of LOC. He stated he was dazed. This occurred 4 hours prior to arrival approximately 930?10 AM. He has a laceration above his right eyebrow. Associated symptoms: Reports neck pain; Deny nausea or vomiting Related Data Home Medications ?Medication ?Instructions ?Recorded ?Confirmed atorvastatin 10 mg tablet 10 mg PO QPM 02/11/25 02/11/25 cholecalciferol (vitamin D3) 125 125 mcg PO QPM 02/11/25 02/11/25 mcg (5,000 unit) tablet (Vitamin D3) Previous Rx's ?Medication ?Instructions ?Recorded cephalexin 500 mg capsule 500 mg PO BID 3 days #6 caps 02/11/25 Allergies Allergy/AdvReac Type Severity Reaction Status Date / Time No Known Allergies Allergy Verified 02/11/25 13:51 Review of Systems General: Reports: 10 or more systems reviewed and unremarkable except in HPI and below Const: Denies: fever(s) or chills Eyes: Denies: change in vision or blurry vision ENMT: Denies: throat pain or dry mouth Card: Denies: chest pain or palpitations Resp: Denies: dyspnea or productive cough GI: Denies: abdominal pain, nausea, vomiting or coffee ground emesis : Denies: flank pain or difficulty urinating Musc: Reports: neck pain; Denies: back pain or extremity pain Skin/Breast: Reports: skin tenderness and surgical incision (laceration); Denies: rash or pruritus Neuro: Reports: headache(s); Denies: numbness in extremities or weakness in extremities Psych: Denies: anxiety or depression Physical Exam Const: COMMON NORMALS: no acute distress, average body habitus and patient oriented x3 GENERAL APPEARANCE: cooperative and comfortable HENMT: FACE & SINUS IMAGES:  1. laceration 5 cm Eye: PUPIL: Yes Pupils not reactive on the right (less reactive) Neck/C-Spine: COMMON NORMALS: full ROM, no lymphadenopathy, supple, no meningeal signs and no JVD GENERAL: Yes normal visual inspection and Yes trachea midline Lymph: LYMPHATIC: no lymphadenopathy noted Chest: COMMONS NORMALS: normal inspection of the chest and normal palpation of entire chest wall Resp: COMMON NORMALS: normal respiratory effort and No retractions Cardio: COMMON NORMALS: no JVD, regular rate and regular rhythm RATE: regular rate RHYTHM: regular rhythm GI: COMMON NORMALS: Normal to inspection, nondistended, normoactive bowel sounds present, Soft to palpation and non-tender PALPATION: Yes Soft to palpation : COMMON NORMALS: Yes no CVA tenderness BLADDER/KIDNEY EXAM: Yes no CVA tenderness Back/Pelvis: COMMON NORMALS: no CVA tenderness Extremity: COMMON NORMALS: normal to inspection, full ROM and capillary refill normal Neuro: COMMON NORMALS: patient oriented x3, CN's II-XII intact bilaterally and moves all extremities MENINGEAL SIGNS: Yes no meningeal signs Psych: COMMON NORMALS: mental status grossly normal and Normal thought process present THOUGHT PROCESS: Normal thought process present Skin: COMMON NORMALS: no rashes or lesions noted and no wounds GENERAL SKIN EXAM: no rashes or lesions noted Procedures Laceration Laceration 1: Site: scalp Side (If applicable): right Size (cm): 5 Depth: simple, single layer Local Anesthetic: lidocaine 1% and with epi Amount of anesthesia used (mL): 2 Pre-repair: wound explored, irrigated extensively and deep structures intact Skin layer closed with: other (dermabond) Technique: other (dermabond) Course Vital Signs: Vital signs: Vital Signs Temperature 98.1 F 02/11/25 13:46 Pulse Rate 96 02/11/25 16:26 Respiratory Rate 16 02/11/25 13:46 Blood Pressure 138/91 02/11/25 16:26 Pulse Oximetry 99 02/11/25 16:26 Oxygen Delivery Me thod Room Air 02/11/25 16:00 MDM - Head Injury Medcial Decision Making Patient is a 39-year-old gentleman that had a trip and fall with unknown amount of time of LOC. Given his LOC, laceration, days, CT of the head and neck were done, however there were no acute findings. Laceration appeared superficial after further review, and Dermabond was appropriate for this laceration. Closure went together well without any issues. Prophylactic antibiotics were sent to the pharmacy. Discussed all of this with the patient and he states understanding. As well, discussed his nontoxic incidental finding of thyroid nodule, which patient knew about. Lab Data Radiology Impressions Cervical Spine CT 02/11/25 14:09 IMPRESSION: 1. No CT evidence of acute cervical spine traumatic injury. 2. Additional findings, as above. Head CT 02/11/25 14:09 IMPRESSION: No CT evidence of acute intracranial pathology. All radiology interpretation(s) finalized by discharge Discharge Plan Discharge Patient Disposition: Home Clinical Impression: Nontoxic thyroid nodule Closed head injury Qualifiers: Encounter type: initial encounter Qualified Code(s): S09.90XA - Unspecified injury of head, initial encounter Condition: Stable Prescriptions: New cephalexin 500 mg capsule 500 mg PO BID 3 Days Qty: 6 0RF No Action atorvastatin 10 mg Tablet 10 mg PO QPM cholecalciferol (vitamin D3) [Vitamin D3] 125 mcg (5,000 unit) Tablet 125 mcg PO QPM Discharge Orders: Discharge ED (Routine); Ordered 02/11/25 Ordered By: Luanne May Referrals: Sangeeta Brown FNP [Primary Care Provider, Nurse Practitioner] Discharge Diet: Usual diet Discharge Activity: Resume usual activity Patient Instructions: Concussion (ED), Patient Portal & Angelito Instructions, Suture Care - Skin Glue Activity Restrictions/Additional Instructions: Caution on impact sports for 4 weeks Return to ED if you have ongoing nausea, and vomiting Follow concussion protocol instructions above Follow skin glue instructions above Antibiotics are prophylactic at the pharmacy. 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
[2025-02-11] MEDS: lidocaine-prilocaine cream 5 gm 1 APPLIC TOPICAL (14:13)
--- NOTE | 2025-02-13 12:11 | W.ED.HEATRA ---
HPI - Head Injury General: Chief complaint: Head Injury Stated complaint: right side head wound Time Seen by Provider: 02/11/25 13:48 Related Data Home Medications ?Medication ?Instructions ?Recorded ?Confirmed atorvastatin 10 mg tablet 10 mg PO QPM 02/11/25 02/11/25 cholecalciferol (vitamin D3) 125 125 mcg PO QPM 02/11/25 02/11/25 mcg (5,000 unit) tablet (Vitamin D3) Previous Rx's ?Medication ?Instructions ?Recorded clindamycin HCl 300 mg capsule 300 mg PO Q6H 7 days #28 caps 02/13/25 Allergies Allergy/AdvReac Type Severity Reaction Status Date / Time No Known Allergies Allergy Verified 02/11/25 13:51 Course Vital Signs: Vital signs: Vital Signs Temperature 98.1 F 02/11/25 13:46 Pulse Rate 96 02/11/25 16:26 Respiratory Rate 16 02/11/25 13:46 Blood Pressure 138/91 02/11/25 16:26 Pulse Oximetry 99 02/11/25 16:26 Oxygen Delivery Me thod Room Air 02/11/25 16:00 MDM - Head Injury Lab Data Radiology Impressions Cervical Spine CT 02/11/25 14:09 IMPRESSION: 1. No CT evidence of acute cervical spine traumatic injury. 2. Additional findings, as above. Head CT 02/11/25 14:09 IMPRESSION: No CT evidence of acute intracranial pathology. Discharge Plan Discharge Patient Disposition: Home Clinical Impression: Nontoxic thyroid nodule Closed head injury Qualifiers: Encounter type: initial encounter Qualified Code(s): S09.90XA - Unspecified injury of head, initial encounter Condition: Stable Prescriptions: New clindamycin HCl 300 mg capsule 300 mg PO Q6H 7 Days Qty: 28 0RF No Action atorvastatin 10 mg Tablet 10 mg PO QPM cholecalciferol (vitamin D3) [Vitamin D3] 125 mcg (5,000 unit) Tablet 125 mcg PO QPM Discharge Orders: Discharge ED (Routine); Ordered 02/11/25 Ordered By: Luanne May Referrals: Sangeeta Brown FNP [Primary Care Provider, Nurse Practitioner] Discharge Diet: Usual diet Discharge Activity: Resume usual activity Patient Instructions: Concussion (ED), Patient Portal & [facility] Instructions, Suture Care - Skin Glue Activity Restrictions/Additional Instructions: Caution on impact sports for 4 weeks Return to ED if you have ongoing nausea, and vomiting Follow concussion protocol instructions above Follow skin glue instructions above Antibiotics are prophylactic at the pharmacy. 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
== END 2025-02-11 16:27 | disposition home or self-care (01) ==
PROVIDERS: Emergency Provider Physician Assistant; PCP Nurse Practitioner
DX: S09.8XXA Other specified injuries of head, initial encounter (principal); S01.01XA Laceration without foreign body of scalp, initial encounter; E04.1 Nontoxic single thyroid nodule; W01.0XXA Fall on same level from slipping, tripping and stumbling without subsequent striking against object, initial encounter
CPT/HCPCS: 12002; 70450; 72125; 90471; 90715; 99284; J9999